=== PATIENT | female | born 1945 | race Caucasian/White ===

== ENCOUNTER → 2018-03-17 | Day surgery (SDC) | payer OTHER ==
[2018-03-07 15:23] LABS: BASOPHILS # (AUTO) 0.1 (0.0-0.1); BASOPHILS % 0.6 % (0.0-1.0); EOSINOPHILS # (AUTO) 0.5 (0.0-0.4); EOSINOPHILS % 3.8 % (0.0-6.0); HEMATOCRIT 37.7 % (34.2-44.1); HEMOGLOBIN 11.9 g/dL (12.0-16.0); LYMPHOCYTES # (AUTO) 4.5 (1.0-3.2); LYMPHOCYTES % 34.7 % (18.0-39.1); MEAN CORPUSCULAR HEMOGLOBIN 25.9 pg (28-32); MEAN CORPUSCULAR HGB CONC 31.6 g/dL (31-35); MONOCYTES % 7.8 % (4.4-11.3); NEUTROPHILS # (AUTO) 6.8 (2.1-6.9); NEUTROPHILS % 52.8 % (38.7-80.0); PLATELET COUNT 310 x10e3/uL (140-360); RED CELL DISTRIBUTION WIDTH 14.7 % (11.7-14.4)
[~2018-03-17] MED LIST: AMLODIPINE-BEN1 EAC5 PO; ASPIR 8181 MG PO; BUPIVACAINE HC 0.75% PF 10ML VIAL INJ ONE; CARAFATE1 GM/10 ML PO; CHONDR SU A NA/HYALUR SOD 1 EACH KIT IO ONE; CLOPIDOGREL75 MG PO; CYCLOPENTOLATE HCL 2% OPTH SOLN 2 ML BTL OP ONE; EPINEPHRINE HCL INJ 1 MG/ML AMP ONE; LANSOPRAZOLE30 MG PO; LIDOCAINE 2% /EPINEPHRINE 20 ML SDV INJ ONE; LIDOCAINE HCL-PF 4% 40 MG/1 ML 5ML AMP ONE; LOTREL 5-20 MG1 EACH PO; MIDAZOLAM HCL 2 MG/2 ML VIAL ONE; OMEPRAZOLE40 MG PO; PHENYLEPHRINE HCL 2 ML DROPS ONE; PILOCARPINE HCL(OPTH) 15 ML LIQD ONE; POVIDONE IODINE 5% (OPTH) 30 ML BTL ONE; PROPOFOL IV EMULSION 10 MG/ML 20 ML VIAL ONE; TOBRAMYCIN/DEXAMETHASONE(OPTH) 3.5 GM TUBE ONE
[2018-03-17 11:15] VITALS: BP 134/62
== END | disposition home or self-care (01) ==
LOC: OR 07:22
PROVIDERS: ATTEND Ophthalmology
DX: H25.11 Age-related nuclear cataract, right eye (principal); K21.9 Gastro-esophageal reflux disease without esophagitis; I25.10 Atherosclerotic heart disease of native coronary artery without angina pectoris; D64.9 Anemia, unspecified; I49.9 Cardiac arrhythmia, unspecified; I10 Essential (primary) hypertension; Z01.810 Encounter for preprocedural cardiovascular examination; Z01.812 Encounter for preprocedural laboratory examination; Z79.82 Long term (current) use of aspirin
CPT/HCPCS: 36415; 66982; 85025; 93005; J0171; J2001; J2250; V2632

== ENCOUNTER 2018-07-04 05:33 | Observation (INO) | payer OTHER ==
[2018-07-01 11:49] LABS: BASOPHILS # (AUTO) 0.1 (0.0-0.1); BASOPHILS % 0.6 % (0.0-1.0); EOSINOPHILS # (AUTO) 0.6 (0.0-0.4); EOSINOPHILS % 4.8 % (0.0-6.0); HEMATOCRIT 39.1 % (34.2-44.1); LYMPHOCYTES # (AUTO) 4.8 (1.0-3.2); MEAN CORPUSCULAR HEMOGLOBIN 25.1 pg (28-32); MEAN CORPUSCULAR HGB CONC 30.7 g/dL (31-35); MEAN CORPUSCULAR VOLUME 81.8 fL (81-99); MONOCYTES % 7.7 % (4.4-11.3); NEUTROPHILS # (AUTO) 6.1 (2.1-6.9); NEUTROPHILS % 48.6 % (38.7-80.0); PLATELET COUNT 285 x10e3/uL (140-360); RED BLOOD COUNT 4.78 x10e6/uL (3.6-5.1); RED CELL DISTRIBUTION WIDTH 14.3 % (11.7-14.4)
--- NOTE | 2018-07-01 12:03 | Diagnostic Imaging Report ---
EXAMINATION: CHEST 2 VIEWS INDICATION: Preop. Knee pain. Surgery. COMPARISON: None FINDINGS: TUBES and LINES: None. LUNGS: Lungs are well inflated. Mild chronic appearing changes in the lungs. There is no evidence of pneumonia or pulmonary edema. PLEURA: No pleural effusion or pneumothorax. HEART AND MEDIASTINUM: The cardiomediastinal silhouette is unremarkable. BONES AND SOFT TISSUES: No acute osseous lesion. Soft tissues are unremarkable. UPPER ABDOMEN: No free air under the diaphragm. IMPRESSION: No acute thoracic abnormality. Signed by: Dr. Noé Santos M.D. on 07/01/2018 12:00 PM
[~2018-07-04] VITALS: Ht 160 cm; Wt 84.4 kg
[~2018-07-04 05:33] MED LIST changes: +ALEVE220 M1 PO; -BUPIVACAINE HC 0.75% PF 10ML VIAL INJ ONE; -CHONDR SU A NA/HYALUR SOD 1 EACH KIT IO ONE; -CYCLOPENTOLATE HCL 2% OPTH SOLN 2 ML BTL OP ONE; -EPINEPHRINE HCL INJ 1 MG/ML AMP ONE; -LIDOCAINE 2% /EPINEPHRINE 20 ML SDV INJ ONE; -LIDOCAINE HCL-PF 4% 40 MG/1 ML 5ML AMP ONE; -MIDAZOLAM HCL 2 MG/2 ML VIAL ONE; -PHENYLEPHRINE HCL 2 ML DROPS ONE; -PILOCARPINE HCL(OPTH) 15 ML LIQD ONE; -POVIDONE IODINE 5% (OPTH) 30 ML BTL ONE; -PROPOFOL IV EMULSION 10 MG/ML 20 ML VIAL ONE; -TOBRAMYCIN/DEXAMETHASONE(OPTH) 3.5 GM TUBE ONE
--- OUTSIDE RECORDS SUMMARY | 2018-07-04 05:36 | XMS REPORT ---
Author Author [facility] Address Unknown Phone Unavailable Care Team Providers Care Homoeopath Name Role Phone JAMES BOSS Unavailable Unavailable Problems This patient has no known problems. Allergies, Adverse Reactions, Alerts This patient has no known allergies or adverse reactions. Medications This patient has no known medications. Results Test Description Test Time Test Comments Text Results Atomic Results Result Comments CHEST 2 VIEWS 2018-07-01 11:59:00 [facility] [address] [place] [address] Patient Name: NIMCO CR MR #: [id number] : 1945 Age/Sex: 73/F Req #: [id number] Adm Physician: Ordered by: JAMES BOSS MD Report #: [id number] Location: OR Room/Bed: Procedure: [id number] DX/CHEST 2 VIEWS Exam Date: 07/01/18 Exam Time: 1120 REPORT STATUS: Signed EXAMINATION: CHEST 2 VIEWS INDICATION: Preop. Knee pain. Surgery. COMPARISON: None FINDINGS: TUBES and LINES: None. LUNGS: Lungs are well inflated. Mild chronic appearing changes in the lungs. There is no evidence of pneumonia or pulmonary edema. PLEURA: No pleural effusion or pneumothorax. HEART AND MEDIASTINUM: The cardiomediastinal silhouette is unremarkable. BONES AND SOFT TISSUES: No acute osseous lesion. Soft tissues are unremarkable. UPPER ABDOMEN: No free air under the diaphragm. IMPRESSION: No acute thoracic abnormality. Signed by: Dr. Noé Santos M.D. on 07/01/2018 12:00 PM Dictated By: NOÉ SANTOS MD, MD 1200 Transcribed By: NEDA on 07/01/181199 COPY TO: JAMES BOSS MD
[2018-07-04] MEDS ORDERED: ROPIVACAINE 246.25 MG, EPINEPHRINE HCL 1:1000 0.5 MG, CLONIDINE HCL 0.08 MG, KETOROLAC ... INJ ONE ×5 (06:00)
[2018-07-04] MEDS ORDERED: CEFAZOLIN SOD 2 GM/D5W 50ML 50 ML IV ONE (06:15)
[2018-07-04] MEDS ORDERED: DEXAMETHASONE SOD PHOS 10 MG/1 ML VIAL ONE (06:16)
[2018-07-04] MEDS ORDERED: CELECOXIB 200 MG CAP ONE (06:16)
[2018-07-04] MEDS ORDERED: GABAPENTIN 300 MG CAP ONE (06:16)
[2018-07-04] MEDS ORDERED: BACITRACIN 50,000 UNIT VIAL ONE (06:52)
[2018-07-04] MEDS ORDERED: TRANEXAMIC ACID 1,000 MG/10 ML ML ONE (06:52)
--- NOTE | 2018-07-04 07:10 | NUR ---
SPIRITUAL CARE - Pre-Surgery Assessment: Pt in bed. Pt's at bedside. Pt reported supportive attention from family and friends. Intervention: I provided pastoral presence, hospitality, sympathetic listening, and prayer. I acquainted pt with availability of halal meat packer while hospitalized. Outcome: Pt expressed appreciation for visit. No need for follow up indicated at this time. [facility]ON[facility] Floydlain Spiritual Care Department O: [phone] Pager: [phone] ([phone] number calling from)
[2018-07-04] MEDS ORDERED: ACETAMINOPHEN 650 MG SUPP PR PRN (09:15)
[2018-07-04] MEDS ORDERED: PROMETHAZINE HCL (IM) 25 MG/ML VIAL IM PRN (09:15)
[2018-07-04] MEDS ORDERED: DOCUSATE SODIUM 100 MG CAP PO PRN (09:15)
[2018-07-04] MEDS: SODIUM CHLORIDE 0.9% 1000ML 1,000 ML IV SCH ×2 (09:15→19:15)
[2018-07-04] MEDS ORDERED: ONDANSETRON HCL INJ 2 MG/ML VIAL IV PRN (09:15)
[2018-07-04] MEDS ORDERED: HYDROCODONE/APAP 7.5MG-325MG 1 EA TAB PO PRN (09:15)
[2018-07-04] MEDS ORDERED: DIPHENHYDRAMINE HCL INJ 50 MG/ML VIAL IM/IV PRN (09:15)
[2018-07-04] MEDS ORDERED: HYDROCODONE/APAP 5MG-325MG TAB PO PRN (09:15)
[2018-07-04] MEDS ORDERED: KETOROLAC TROMETHAMINE 30 MG/ML VIAL IV PRN (09:15)
--- NOTE | 2018-07-04 10:55 | Diagnostic Imaging Report ---
LEFT KNEE - 2 IMAGES HISTORY: Osteoarthritis, postop COMPARISON: None available. FINDINGS: Sensitivity limited by portable technique. Bones: No acute displaced fracture. No aggressive osseous lesion. Joints: Status post total knee arthroplasty. Soft tissues: Regional soft tissue swelling and air foci, compatible with recent surgery. Anterior metallic skin jay. IMPRESSION: Status post total knee arthroplasty. Signed by: Dr. Angel Velasquez D.O., M.M.M. on 07/04/2018 10:51 AM
[2018-07-04] MEDS: ACETAMINOPHEN 1000 MG/100 ML IV SCH ×2 (12:00→19:15)
--- NOTE | 2018-07-04 12:04 | Operative Report ---
DATE OF PROCEDURE: July 04, 2018 LABORATORY DIRECTOR: Kenneth Moe PA-C The patient was brought to the operating room for induction of anesthesia. Throughout this case, my PA's assistance was necessary for retraction of soft tissue and positioning of the extremity. This allows for efficient and technically successful execution of the operation and is considered medically necessary. PREOPERATIVE DIAGNOSIS: Osteoarthritis, left knee. POSTOPERATIVE DIAGNOSIS: Osteoarthritis, left knee. PROCEDURE: Left total knee arthroplasty. INDICATIONS: The patient is a 73-year-old lady who has end-stage arthritis of her left knee. She has failed conservative management and would like to proceed with a left total knee replacement. The risks and benefits of the procedure have been discussed. She states she understands and wishes to proceed. DESCRIPTION OF PROCEDURE: The patient was brought to the operating room and placed under general anesthetic. She received prophylactic antibiotics, a regional block and tranexamic acid in the holding area. Her left lower extremity was prepped and draped in a sterile manner. A preoperative time out was performed. The extremity was exsanguinated, and a proximal tourniquet was inflated to 300 mmHg. An anterior approach with a medial parapatellar arthrotomy was performed. Limited medial soft-tissue dissection was performed due to the valgus deformity. The knee was brought up into flexion with the patella everted. Marginal osteophytes and meniscal remnants were removed. A Wright and Nephew posterior stabilized Legion knee system was used throughout the case. An extramedullary cutting guide was used to resect the proximal tibia. The. The cut was referenced off of the least affected medial compartment. The tibial baseplate was a size number 4. The central fin punch was impacted, and attention was directed towards the distal femur. An intramedullary cutting guide was used to resect the distal femur in 5 degrees of valgus and rotation referencing off of a combination of landmarks including Bedford's line, the epicondylar axis and the posterior condyles. The femoral component was a size 6 narrow. The anterior, posterior and notch cut were made. Trial reductions were performed. A 9 mm posterior stabilized insert was particularly tight on the lateral side. A lamina mid level net developer was placed, and a number 11 blade was used to release lateral soft tissue. The 9 mm tibial insert was then recheck trialed. This provided appropriate soft-tissue balancing in flexion and extension. The patella was resurfaced with a 29 mm x 9 mm patellar button. The thickness was checked before and after and was right around 22 mm. Patellar tracking was noted to be concentric. The trial implants were removed, and a 100 mL premixed pericapsular CHERYLE injection was placed into the surrounding soft tissue. A shower-tip pulsatile lavage was used to thoroughly irrigate the knee. The components were cemented into place using a single mix of high-viscosity Simplex cement pre-loaded with antibiotics. Care was taken to remove all extravasated cement. The wound was further irrigated while the cement cured. The arthrotomy was then closed with interrupted number 1 Ethibond. The skin was closed with subcuticular Vicryl and jay. A sterile Aquacel bandage was applied. The patient was extubated and transported to the recovery room in stable condition. Blood loss was minimal. All needle and sponge counts were correct. Job#: [id number]
[2018-07-04] MEDS: CEFAZOLIN SOD 1 GM/D5W 50ML 50 ML IV SCH ×2 (14:00→17:45)
[2018-07-04 16:02] VITALS: BP 122/88
[2018-07-04] MEDS ORDERED: CELECOXIB 100 MG CAP PO SCH (17:00)
[2018-07-04] MEDS: ASPIRIN 325 MG TAB PO SCH (17:30)
[2018-07-04] MEDS: CELECOXIB 200 MG CAP PO SCH (17:30)
[2018-07-04 17:33] VITALS: BP 122/88
[2018-07-04] MEDS ORDERED: FENTANYL CITRATE/PF 100MCG/2 ML INJ ONE (17:57)
[2018-07-04] MEDS ORDERED: MIDAZOLAM HCL 2 MG/2 ML VIAL ONE (17:57)
[2018-07-04] MEDS ORDERED: ROPIVACAINE 0.5% 5 MG/ML 30 ML SDV ONE (18:24)
[2018-07-04] MEDS ORDERED: LIDOCAINE 2%/ EPINEPHRINE 20ML MDV ONE (18:24)
[2018-07-04] MEDS ORDERED: ONDANSETRON HCL INJ 2 MG/ML VIAL ONE (18:43)
[2018-07-04] MEDS ORDERED: SEVOFLURANE INHAL SOLN 250 ML PEN BTL ONE (18:43)
[2018-07-04] MEDS ORDERED: PROPOFOL IV EMULSION 10 MG/ML 20 ML VIAL ONE (18:43)
[2018-07-04] MEDS ORDERED: KETOROLAC TROMETHAMINE 30 MG/ML VIAL ONE (18:43)
[2018-07-04] MEDS ORDERED: LIDOCAINE HCL 2% LOCAL INJ 5 ML SDV VIAL INJ ONE (18:43)
--- NOTE | 2018-07-04 19:13 | NUR ---
WALKING ROUNDS PERFORMED, RECEIVED PT LAYING SEMI FOWLERS IN BED, AAOX3, RR EVEN AND NON-LABORED, ON RA. NO S/SX OF DISTRESS NOTED. DRESSING TO (L) KNEE NOTED TO BE CDI. LEFT PT LAYING SEMI FOWLERS IN BED, BED IN LOW LOCKED POSITION, SIDE RAILS UPX2, CLAL LIGHT AND PHONE WITHIN REACH.
[2018-07-04 20:00] VITALS: BP 125/60
[2018-07-04] MEDS ORDERED: ZOLPIDEM TARTRATE 5 MG TAB PO PRN (21:00)
[2018-07-05] VITALS: BP 158/66
[2018-07-05] MEDS: ACETAMINOPHEN 1000 MG/100 ML IV SCH ×2 (00:34→05:45)
--- NOTE | 2018-07-05 00:38 | NUR ---
PAGE PLACED FOR MD PADILLA CONCERNING PT REPORTS OF ACID REFLUX. WAITING FOR CALL BACK.
[2018-07-05 04:00] VITALS: BP 143/63
[2018-07-05] MEDS: SODIUM CHLORIDE 0.9% 1000ML 1,000 ML IV SCH (05:15)
--- NOTE | 2018-07-05 05:50 | NUR ---
JUSTO WRAP TO (L) KNEE REMOVED. DRESSING TO (L) KNEE NOTED TO BE CDI, LEFT DRESSING INTACT AND APPLIED NOVA HOSE TO (L) LOWER EXTREMITY.
[2018-07-05] MEDS: CEFAZOLIN SOD 1 GM/D5W 50ML 50 ML IV SCH (06:02)
[2018-07-05 06:46] LABS: HEMATOCRIT 34.1 % (34.2-44.1); HEMOGLOBIN 10.8 g/dL (12.0-16.0)
--- NOTE | 2018-07-05 08:30 | NUR ---
SITTING IN BS CHAIR, CALL LIGHT WITHIN REACH
[2018-07-05 09:04] VITALS: BP 155/71
[2018-07-05] MEDS ORDERED: ACETAMINOPHEN 1000 MG/100 ML IV PRN (09:15)
[2018-07-05] MEDS ORDERED: AMLODIPINE BESYLATE 10 MG TAB PO NR (09:15)
[2018-07-05] MEDS: CELECOXIB 200 MG CAP PO SCH (09:30)
[2018-07-05] MEDS: ASPIRIN 325 MG TAB PO SCH (09:30)
[2018-07-05] MEDS ORDERED: PANTOPRAZOLE SOD 40 MG TABEC PO SCH (09:30)
[2018-07-05 09:46] VITALS: BP 155/71
[2018-07-05] MEDS ORDERED: ASPIRIN325 MG PO (12:27)
--- NOTE | 2018-07-05 12:34 | NUR ---
PT LIVES WITH HER IN AN UPSTAIRS APT IN [place] PT'S DAUGHTER LIVES DOWN THE [address] PT HAS NO DME AT HOME S/P KNEE REPLACEMENT DISCHARGE PLANS PRE-ARRANGED BY NANCY AT DR BOSS'S OFFICE FOLLOWS: CPM AND 3 IN 1 ARRANGED WITH [facility] [phone] CALLED AND SPOKE WITH ROBER AND NOTIFIED HER OF PT'S DC TODAY RW PROVIDED BY CM; PAPERWORK COMPLETE AND PUT IN PACU HOME HEALTH AND P.T. ARRANGED WITH [facility] [phone] FAXED CLINICAL INFORMATION TO [phone] CONFIRMATION REC'D CHOICE LETTER SIGNED AND ON CHART COPY TO PT NELLI SIGNBED AND ON CHART COPY TO PT GAVE PT MY CARD FOR QUESTIONS/CONCERNS
[2018-07-05] MEDS ORDERED: NORCO 7.5-3251 EACH PO (12:53)
[2018-07-05 13:02] VITALS: BP 125/56
--- NOTE | 2018-07-05 13:47 | NUR ---
DISCHARGE INSTRUCTIONS REVIEWED WITH PT, PT VERBALIZED UNDERSTANDING, WHEELED OFF UNIT VIA WC FOR DISCHARGE, NO CHANGE IN CONDITION
== END 2018-07-05 13:42 | disposition home health service (06) ==
LOC: OR 05:33 → PACU V 09:17 → MED/SURG 15:23
PROVIDERS: ADMIT Specialist; ATTEND Specialist
DX: M17.12 Unilateral primary osteoarthritis, left knee (principal); K21.9 Gastro-esophageal reflux disease without esophagitis; I10 Essential (primary) hypertension; Z83.3 Family history of diabetes mellitus; Z82.49 Family history of ischemic heart disease and other diseases of the circulatory system; Z82.3 Family history of stroke; M21.062 Valgus deformity, not elsewhere classified, left knee; Z01.810 Encounter for preprocedural cardiovascular examination; Z01.812 Encounter for preprocedural laboratory examination; Z01.811 Encounter for preprocedural respiratory examination
CPT/HCPCS: 27447; 36415 ×2; 71046; 73560; 85014; 85018; 85025; 86850; 86900; 86920; 93005; 97116 ×2; 97139; 97161; 97530; C1713; G0378 ×2; G8978; G8979; J0131 ×2; J0171; J0690 ×3; J1100; J1885; J2001 ×2; J2250; J2405; J2704; J2795; J7030; S0164

== ENCOUNTER 2021-05-26 16:43 | Emergency (ER) | payer OTHER ==
[~2021-05-26] VITALS: Ht 160 cm; Wt 84.4 kg
[~2021-05-26 16:43] MED LIST changes: +ASPIRIN325 MG PO; +NORCO 7.5-3251 EACH PO
[2021-05-26] MEDS ORDERED: SODIUM CHLORIDE 0.9% 1000ML 1,000 ML IV STA (17:11)
[2021-05-26] MEDS ORDERED: ONDANSETRON HCL INJ 2MG/ML 2ML 2 MG/ML VIAL IV STA (17:11)
[2021-05-26 17:44] LABS: BASOPHILS # (AUTO) 0.1 (0.0-0.1); BASOPHILS % 0.5 % (0.0-1.0); EOSINOPHILS # (AUTO) 0.2 (0.0-0.4); EOSINOPHILS % 1.6 % (0.0-6.0); HEMATOCRIT 36.6 % (34.2-44.1); HEMOGLOBIN 11.3 g/dL (12.0-16.0); MEAN CORPUSCULAR HEMOGLOBIN 24.6 pg (28-32); MEAN CORPUSCULAR HGB CONC 30.9 g/dL (31-35); MEAN CORPUSCULAR VOLUME 79.6 fL (81-99); MONOCYTES # (AUTO) 1.2 (0.2-0.8); MONOCYTES % 8.1 % (4.4-11.3); NEUTROPHILS # (AUTO) 7.8 (2.1-6.9); NEUTROPHILS % 54.4 % (38.7-80.0); PLATELET COUNT 301 x10e3/uL (140-360); RED CELL DISTRIBUTION WIDTH 14.6 % (11.7-14.4)
[2021-05-26 18:05] LABS: ALBUMIN 3.8 g/dL (3.5-5.0); ANION GAP 17.3 mmol/L (8-16); CALCIUM 9.1 mg/dL (8.4-10.2); CREATININE, SERUM 1.3 mg/dL (0.57-1.11); POTASSIUM 5.3 mmol/L (3.5-5.1)
[2021-05-26 18:12] LABS: CREATINE KINASE MB 1.2 ng/mL (0-5.0)
[2021-05-26] MEDS ORDERED: ACETAMINOPHEN 325 MG TAB PO STA (18:22)
[2021-05-26] MEDS ORDERED: ASPIRIN 325 MG TAB PO STA (19:23)
[2021-05-26 19:31] LABS: CLARITY,URINE CLOUDY (CLEAR); COLOR,URINE YELLOW (YELLOW); KETONES,URINE NEGATIVE (NEGATIVE); LEUKOCYTE ESTERASE ,URINE LARGE (NEGATIVE); NITRITE,URINE NEGATIVE (NEGATIVE); PROTEIN,URINE DIPSTICK NEGATIVE (NEGATIVE); URINE UROBILINOGEN 0.2 mg/dL (0.2 - 1)
[2021-05-26 19:37] LABS: BACTERIA,URINE FEW /HPF; EPITHELIAL CELLS,URINE FEW /LPF; WBC,URINE (MAN) >50 /HPF (0-5)
[2021-05-26] MEDS ORDERED: CEFTRIAXONE 1 GM in SODIUM CHLORIDE 0.9% 50ML 50 ML IV STA (19:41)
== END 2021-05-26 22:15 | disposition other institution (70) ==
LOC: ER 16:50
DX: G45.9 Transient cerebral ischemic attack, unspecified (principal); N39.0 Urinary tract infection, site not specified; E87.5 Hyperkalemia; R11.2 Nausea with vomiting, unspecified; R51.9 Headache, unspecified; I10 Essential (primary) hypertension; K21.9 Gastro-esophageal reflux disease without esophagitis; M06.9 Rheumatoid arthritis, unspecified; Z20.822 Contact with and (suspected) exposure to COVID-19
CPT/HCPCS: 36415; 70450; 71045; 80053; 81001; 82550; 82553; 83880; 84484; 85025; 99284; J0696; J2405; J7030; U0002

== ENCOUNTER 2025-02-08 06:56 | Observation (INO) | payer MEDICARE ==
[~2025-02-08] VITALS: Ht 160 cm; Wt 80.7 kg
[2025-02-08 06:56] VITALS: PULSE 76; RESP 20; TEMP 98.3
[~2025-02-08 06:56] MED LIST changes: +BUMETANIDE1 MG PO; +BUTALB-ACETAMI1 EACH PO; +DORZOLAMIDE-TIM10 ML OP; +ELIQUIS5 MG PO; +ENTRESTO 24 MG1 EACH PO; +FLOMAX0.4 MG PO; +LIPITOR20 MG PO; +METOPROLOL SUCC50 MG PO; +POTASSIUM CHLO10 ME1 PO; +PROPRANOLOL HCL40 MG PO
[2025-02-08] MEDS ORDERED: SODIUM CHLORIDE FLUSH 10 ML SYR IV PRN (07:15)
[2025-02-08 07:48] LABS: BASOPHILS % 0.4 % (0.0-1.0); EOSINOPHILS % 1.2 % (0.0-6.0); LYMPHOCYTES % 17.5 % (18.0-39.1); MONOCYTES % 8.4 % (4.4-11.3); NEUTROPHILS % 72.0 % (38.7-80.0); RED CELL DISTRIBUTION WIDTH 14.6 % (11.7-14.4)
[2025-02-08] MEDS: ASPIRIN 81 MG CHEW TAB PO ONE (08:49)
[2025-02-08] MEDS: Morphine 2mg Syringe 2 MG/ML SYR IV ONE (08:50)
[2025-02-08] MEDS: ONDANSETRON HCL INJ 2MG/ML 2ML 2 MG/ML VIAL IV STA (08:50)
[2025-02-08 08:54] LABS: EST GLOMERULAR FILTRATION RATE 64.0 ML/MIN (>=60)
[2025-02-08] MEDS ORDERED: IOPAMIDOL 370 MG/ML 100 ML INFUS..BTL INJ ONE (09:10)
[2025-02-08] MEDS ORDERED: SODIUM CHLORIDE FLUSH 10 ML SYR INJ PRN (11:30)
[2025-02-08 11:42] LABS: LEUKOCYTE ESTERASE ,URINE LARGE (NEGATIVE)
[2025-02-08 11:43] LABS: EPITHELIAL CELLS,URINE FEW /LPF; PROTEIN,URINE DIPSTICK NEGATIVE (NEGATIVE); URINE UROBILINOGEN 0.2 mg/dL (0.2 - 1); WBC,URINE (MAN) >50 /HPF (0-5)
[2025-02-08] MEDS: DONNATAL/LIDOCAINE/MAALOX 30 ML SUSP PO ONE (14:48)
[2025-02-08] MEDS: SUCRALFATE 1 GM TAB PO STA (14:48)
[2025-02-08] MEDS: PANTOPRAZOLE SODIUM 20 MG TABLET.DR PO ONE ×2 (16:02→18:10)
[2025-02-08] MEDS: KETOROLAC TROMETHAMINE 30 MG/ML VIAL IV STA (21:29)
[2025-02-08 21:37] VITALS: BP 143/63; PULSE 74; RESP 17; TEMP 97.4; O2SAT 98
[2025-02-08 22:00] VITALS: BP 143/63; PULSE 74; RESP 17; TEMP 97.4; O2SAT 98
[2025-02-08] MEDS ORDERED: TRAMADOL HCL 50 MG TAB PO PRN (22:45)
[2025-02-08] MEDS ORDERED: HYDRALAZINE HCL 20 MG/ML VIAL IV PRN (22:45)
[2025-02-08] MEDS ORDERED: KETOROLAC TROMETHAMINE 30 MG/ML VIAL IV PRN (22:45)
[2025-02-08] MEDS ORDERED: ACETAMIN/BUTALBITAL/CAFFEINE TAB PO PRN (22:45)
[2025-02-08] MEDS ORDERED: ATORVASTATIN CA20 MG PO (23:28)
[2025-02-08] MEDS ORDERED: METHENAMINE HIPP1 GM PO (23:28)
[2025-02-09 00:30] VITALS: BP 110/50; PULSE 68; RESP 17; TEMP 97.3; O2SAT 97
[2025-02-09] MEDS: ONDANSETRON HCL INJ 2MG/ML 2ML 2 MG/ML VIAL IV PRN (00:51)
[2025-02-09] MEDS: HYDROCODONE/APAP 10MG-325MG TAB PO PRN (00:52)
[2025-02-09 04:30] VITALS: BP 119/62; PULSE 63; RESP 17; TEMP 97.3; O2SAT 95
[2025-02-09 08:00] VITALS: BP 116/49; PULSE 60; RESP 18; TEMP 97.5; O2SAT 98
[2025-02-09] MEDS: TAMSULOSIN HCL 0.4 MG CAP PO SCH (08:41)
[2025-02-09 08:45] VITALS: BP 116/49; PULSE 60; RESP 18; TEMP 97.5; O2SAT 98
[2025-02-09 08:50] VITALS: BP 116/49; PULSE 60
[2025-02-09] MEDS: METOPROLOL SUCCINATE 50 MG TAB XL PO SCH (08:50)
== END 2025-02-09 11:35 | disposition home or self-care (01) ==
LOC: ER 07:02 → ERHOLD 11:21 → MED/SURG3 21:31
PROVIDERS: ADMIT Internal Medicine; ATTEND Internal Medicine
DX: K21.9 Gastro-esophageal reflux disease without esophagitis (principal); K44.9 Diaphragmatic hernia without obstruction or gangrene; R11.0 Nausea; R07.89 Other chest pain; I48.91 Unspecified atrial fibrillation; I11.0 Hypertensive heart disease with heart failure; I50.32 Chronic diastolic (congestive) heart failure; I35.0 Nonrheumatic aortic (valve) stenosis; Z96.659 Presence of unspecified artificial knee joint; E78.5 Hyperlipidemia, unspecified
CPT/HCPCS: 36415; 36569; 71045 ×2; 71260; 80053; 81001; 82550; 84484; 85025; 93005; 94760; 99284; G0378 ×2; J0696 ×2; J1885; J2270; J2405 ×2; J2470 ×2; Q9967

== ENCOUNTER 2025-05-03 00:28 | Observation (INO) | payer MEDICARE ==
[2025-05-03] VITALS (12 sets, daily range): BP systolic 104–124; BP diastolic 60–80; PULSE 75–100; RESP 16–18; TEMP 97.3–98.8; O2SAT 93–97
[~2025-05-03] VITALS: Ht 160 cm; Wt 80.8 kg
[~2025-05-03 00:28] MED LIST changes: +ATORVASTATIN CA20 MG PO; +METHENAMINE HIPP1 GM PO
[2025-05-03 00:58] LABS: BASOPHILS % 0.4 % (0.0-1.0); EOSINOPHILS % 0.3 % (0.0-6.0); LYMPHOCYTES % 13.0 % (18.0-39.1); MONOCYTES % 7.0 % (4.4-11.3); NEUTROPHILS % 79.0 % (38.7-80.0); RED CELL DISTRIBUTION WIDTH 16.1 % (11.7-14.4)
[2025-05-03] MEDS ORDERED: ONDANSETRON HCL INJ 2MG/ML 2ML 2 MG/ML VIAL ONE (01:02)
[2025-05-03] MEDS: ONDANSETRON HCL INJ 2MG/ML 2ML 2 MG/ML VIAL IV STA (01:05)
[2025-05-03] MEDS: KETOROLAC TROMETHAMINE 30 MG/ML VIAL IV STA (01:11)
[2025-05-03 01:21] LABS: EST GLOMERULAR FILTRATION RATE 41.0 ML/MIN (>=60)
[2025-05-03] MEDS: SODIUM CHLORIDE 0.9% 1000ML 1,000 ML IV SCH (02:40)
[2025-05-03] MEDS ORDERED: ACETAMIN/BUTALBITAL/CAFFEINE TAB PO PRN (08:30)
[2025-05-03] MEDS ORDERED: IOPAMIDOL 370 MG/ML 100 ML INFUS..BTL INJ ONE (08:49)
[2025-05-03] MEDS: ONDANSETRON HCL INJ 2MG/ML 2ML 2 MG/ML VIAL IV PRN (09:35)
[2025-05-03] MEDS: APIXABAN 5 MG TABLET PO SCH (09:36)
[2025-05-03] MEDS: TAMSULOSIN HCL 0.4 MG CAP PO SCH (09:36)
[2025-05-03] MEDS ORDERED: AMIODARONE HCL200 MG PO (11:03)
[2025-05-03] MEDS ORDERED: METHENAMINE HIPP1 GM PO (11:03)
[2025-05-03] MEDS ORDERED: ALLOPURINOL100 MG PO (11:03)
[2025-05-03] MEDS ORDERED: CEPHALEXIN500 MG PO (11:03)
[2025-05-03] MEDS: METOCLOPRAMIDE HCL 10 MG/2ML VIAL IV SCH (11:06)
[2025-05-03] MEDS: TRAMADOL HCL 50 MG TAB PO PRN (11:16)
[2025-05-03] MEDS: METOPROLOL SUCCINATE 25 MG TAB XL PO SCH (22:19)
[2025-05-03] MEDS: ATORVASTATIN 40 MG TAB PO SCH (22:22)
[2025-05-04] VITALS: BP 111/66; PULSE 57; RESP 18; TEMP 98.6; O2SAT 94
[2025-05-04 04:00] VITALS: BP 113/75; PULSE 89; RESP 18; TEMP 98.1; O2SAT 93
[2025-05-04 05:42] LABS: BASOPHILS % 0.7 % (0.0-1.0); EOSINOPHILS % 0.8 % (0.0-6.0); LYMPHOCYTES % 29.4 % (18.0-39.1); MONOCYTES % 14.1 % (4.4-11.3); NEUTROPHILS % 54.4 % (38.7-80.0); RED CELL DISTRIBUTION WIDTH 16.4 % (11.7-14.4)
[2025-05-04 06:00] LABS: EST GLOMERULAR FILTRATION RATE 51.0 ML/MIN (>=60)
[2025-05-04 08:00] VITALS: BP 124/61; PULSE 90; RESP 19; TEMP 98.4; O2SAT 98
[2025-05-04 08:21] VITALS: BP 124/61; PULSE 90; RESP 19; TEMP 98.6; O2SAT 98
== END 2025-05-04 10:51 | disposition home or self-care (01) ==
LOC: ER 00:45 → ERHOLD 01:01 → INTOOBSV 01:01 → MED/SURG3 02:20
PROVIDERS: ADMIT Internal Medicine; ATTEND Internal Medicine
DX: K44.9 Diaphragmatic hernia without obstruction or gangrene (principal); R07.2 Precordial pain; E86.0 Dehydration; I35.0 Nonrheumatic aortic (valve) stenosis; I48.0 Paroxysmal atrial fibrillation; Z79.01 Long term (current) use of anticoagulants; I10 Essential (primary) hypertension; N30.20 Other chronic cystitis without hematuria; I11.0 Hypertensive heart disease with heart failure; I50.9 Heart failure, unspecified; D72.828 Other elevated white blood cell count; M19.90 Unspecified osteoarthritis, unspecified site; Z96.659 Presence of unspecified artificial knee joint
CPT/HCPCS: 36415 ×2; 71045; 71260; 74177; 80053 ×2; 82550; 83690; 83880; 84484; 85025 ×2; 93005; 93306; 99284; G0378 ×2; J0696 ×2; J1885; J2405; J2470 ×2; J2543; J2765 ×2; J7030; Q9967